=== PATIENT | male | born 1950 | race Caucasian/White ===

== ENCOUNTER 2017-11-08 17:00 | Observation (INO) | payer OTHER ==
[~2017-11-08] VITALS: Ht 165.1 cm; Wt 81.1 kg
[2017-11-08 17:53] LABS: BASOPHIL (%) 0.6 % (0-1); EOSINOPHIL (%) 1.5 % (0-5); EOSINOPHIL COUNT 0.1 K/uL (0-0.3); HEMOGLOBIN 16.1 G/DL (12.5-16.6); IMMATURE GRANULOCYTE (%) 0.3 % (0.0-0.7); LYMPHOCYTE (%) 29.2 % (15-42); LYMPHOCYTE COUNT 2.1 K/uL (1.0-2.8); MCH 33.8 PG (29.0-34.0); MCV 96.4 FL (86-99); MONOCYTE (%) 10.8 % (3-12); MONOCYTE COUNT 0.8 K/uL (0-0.8); NEUTROPHIL (%) 57.6 % (45-76); NEUTROPHIL COUNT 4.1 K/uL (1.8-6.4); PLATELET COUNT 207 K/uL (156-360); RBC DIS.WIDTH-CV 12.4 % (11.8-14.6); RBC DIS.WIDTH-SD 44.4 % (39-53); RED BLOOD COUNT 4.77 M/uL (4.00-5.50); WHITE BLOOD COUNT 7.1 K/uL (4.1-10.2)
[2017-11-08 18:02] LABS: CHLORIDE 106 mEq/L (99-109); SODIUM 141 mEq/L (136-147)
[2017-11-08 18:03] LABS: MAGNESIUM 2.7 mg/dL (1.3-2.7)
[2017-11-08 18:04] LABS: GLUCOSE 98 mg/dL (70-99); TOTAL PROTEIN 7.4 g/dL (6.4-8.3)
[2017-11-08 18:06] LABS: TOTAL BILIRUBIN 0.3 mg/dL (0.0-1.0)
[2017-11-08 18:08] LABS: ALKALINE PHOSPHATASE 61 IU/L (3-129); CREATININE 1.3 mg/dL (0.6-1.3); GFR ESTIMATE (CALCULATED) 59 mL/min/ (58.99-99999)
[2017-11-08 18:09] LABS: UREA NITROGEN (BUN) 22 mg/dL (9-23)
[2017-11-08 18:10] LABS: AST (GOT) 43 IU/L (2-34)
[2017-11-08 18:11] LABS: ALT (GPT) 60 IU/L (3-49)
[2017-11-08 18:15] LABS: TROP-I INTERPRETATION NEGATIVE; TROPONIN-I 0.01 ng/mL (0.0-0.30)
[2017-11-08] MEDS ORDERED: PRAVASTATIN SOD40 MG PO (18:41)
[2017-11-08] MEDS ORDERED: CIALIS5 MG PO (18:41)
[2017-11-08] MEDS ORDERED: VITAMIN E100 UNIT PO (18:42)
[2017-11-08] MEDS ORDERED: VITAMIN D5000 UNI1 PO (18:42)
[2017-11-08] MEDS ORDERED: LO-DOSE ASPIRIN81 M1 PO (18:42)
[2017-11-09 00:44] LABS: TROP-I INTERPRETATION NEGATIVE; TROPONIN-I < 0.01 ng/mL (0.0-0.30)
[2017-11-09 01:11] VITALS: BP 129/89
[2017-11-09 01:32] VITALS: BP 129/89
[2017-11-09 03:10] VITALS: BP 123/90
[2017-11-09 06:02] VITALS: BP 111/62
[2017-11-09 06:19] LABS: ALBUMIN 3.9 G/DL (3.2-4.8); ALKALINE PHOSPHATASE 48 IU/L (3-129); ALT (GPT) 52 IU/L (3-49); AST (GOT) 36 IU/L (2-34); DIRECT BILIRUBIN 0.2 mg/dL (0.0-0.3); TOTAL BILIRUBIN 0.9 MG/DL (0.0-1.0)
[2017-11-09 06:24] LABS: TROP-I INTERPRETATION NEGATIVE; TROPONIN-I < 0.01 ng/mL (0.0-0.30)
[2017-11-09 07:47] VITALS: BP 119/72
[2017-11-09] MEDS ORDERED: DILTIAZEM 24HR120 MG PO (11:25)
[2017-11-09] MEDS ORDERED: ASPIRIN EC325 MG PO (11:25)
[2017-11-10] MEDS ORDERED: DILTIAZEM 24HR120 MG PO (11:45)
== END 2017-11-09 12:12 | disposition home or self-care (01) ==
LOC: EME 17:00 → 4EAST 20:48 → EDOF 20:48 → 4EAST 20:48 → ENRESERV 20:54 → CANRESERV 20:54 → ENRESERV 20:57 → 4EAST 11-09 01:01
PROVIDERS: Emergency Medicine; Hospitalist
DX: I48.91 Unspecified atrial fibrillation (principal); E78.5 Hyperlipidemia, unspecified; Z82.49 Family history of ischemic heart disease and other diseases of the circulatory system; Z80.0 Family history of malignant neoplasm of digestive organs; E66.9 Obesity, unspecified; Z68.29 Body mass index [BMI] 29.0-29.9, adult
CPT/HCPCS: 71045; 80053; 80076; 83735; 83880; 84443; 84484; 85025; 85379; 93005; 99281; 99285; G0378; J7050